=== PATIENT | female | born 1950 | race African-American/Black ===

== ENCOUNTER 2017-01-24 00:22 | Emergency (ER) | payer MEDICARE, OTHER ==
--- NOTE | 2017-01-24 02:15 | ER Document Report ---
ED General - General Chief Complaint: Bloody Stools Stated Complaint: BLOOD IN STOOL Time Seen by Provider: 01/24/17 01:05 Notes: Patient is a 66-year-old female who presents with complaint of some blood from the rectum. No fevers. She said that yesterday she had a 6 hour period of abdominal pain with cramping in her abdomen. She said she also felt hot all over when this occurred. Since then she has had no further abdominal pain. She says she has had a few episodes of mucousy type blood per the rectum. She says she does have history of some hemorrhoids but they are very mild and usually does not cause any bleeding or discomfort. She denies any discomfort in the rectum itself. She denies any vomiting. The only blood thinning medication she takes is aspirin. She has no other complaints at this time. Does have history of diverticulosis and diverticulitis. She had a colonoscopy 2 years ago and there were no abnormal findings other than diverticulosis. TRAVEL OUTSIDE OF THE [place] IN LAST 30 DAYS: No Past Medical History - Social History Smoking Status: Never Smoker Chew tobacco use (# tins/day): No Frequency of alcohol use: None Drug Abuse: None Family History: Reviewed & Not Pertinent Patient has suicidal ideation: No Patient has homicidal ideation: No Renal/ Medical History: Denies: Hx Peritoneal Dialysis Review of Systems - Review of Systems Notes: My Normal Review Basic REVIEW OF SYSTEMS: CONSTITUTIONAL : Denies fever, chills, or sweats. Denies recent illness. RESPIRATORY: Denies cough, cold, or chest congestion. Denies shortness of breath, difficulty breathing, or wheezing. GASTROINTESTINAL: Had episode of abdominal pain yesterday but currently has no pain. No vomiting. Some bloody mucus coming from rectum. MUSCULOSKELETAL: Denies neck or back pain or joint pain or swelling. SKIN: Denies rash or skin lesions. NEUROLOGICAL: Denies altered mental status or loss of consciousness. Denies headache. Denies weakness or paralysis or loss of use of either side. Denies problems with gait or speech. Denies sensory or motor loss. ALL OTHER SYSTEMS REVIEWED AND NEGATIVE. Physical Exam - Vital signs Vitals: Temp Pulse Resp BP Pulse Ox 97.7 F 81 18 156/88 H 96 01/24/17 00:31 01/24/17 00:31 01/24/17 00:31 01/24/17 00:31 01/24/17 00:31 - Notes Notes: General Appearance: Well nourished, alert, cooperative, no acute distress, no obvious discomfort. Well-appearing. Vitals: reviewed, See vital signs table. Head: no swelling or tenderness to the head Eyes: PERRL, EOMI, Conjuctiva clear Mouth: No decreasd moisture Neck: Supple, no neck tenderness Lungs: No wheezing, No rales, No rhonci, No accessory muscle use, good air exchange bilaterally. Heart: Normal rate, Regular rythm, No murmur, no rub Abdomen: Normal BS, soft, No rigidity, No reproducible abdominal tenderness to palpation, No guarding, no rebound, Extremities: strength 5/5 in all extremities, good pulses in all extremities, no swelling or tenderness in the extremities, no edema. Skin: warm, dry, appropriate color, no rash Neuro: speech clear, oriented x 3, normal affect, responds appropriately to questions. Course - Re-evaluation Re-evalutation: 01/24/17 02:15 I reevaluated the patient. She still denies any abdominal pain. Blood is being sent to the lab at this time. Still looks well and is vitally stable. 01/24/17 04:39 Patient is feeling much improved. She looks well. She has not had any further bleeding from the rectum. She says she feels as if that has slowed and stopped. She has not had any recurrence of pain. Laboratory evaluation is unremarkable. Patient is visiting from out of town and does have history of diverticulitis. Therefore did obtain a CT scan being that she did have significant pain earlier today when the bleeding started. There is no evidence of inflammation around the bowel. No evidence of colitis. I suspect patient probably had a brief diverticular bleed which is since stopped. Patient's vital signs are good and her blood work is normal with no anemia. I feel she is safe to discharge home. I talked her about watching her diet since avoiding nuts and seeds and hard foods. I explained to how these can irritate diverticulum. I encouraged her return to ER immediately if she has fevers, vomiting, recurrent abdominal pain, or recurrent bleeding. Patient agrees with plan will be discharged home. Dictation of this chart was performed using voice recognition software; therefore, there may be some unintended grammatical errors. - Vital Signs Vital signs: Temp Pulse Resp BP Pulse Ox 97.7 F 81 19 154/79 H 98 01/24/17 00:31 01/24/17 00:31 01/24/17 04:12 01/24/17 04:12 01/24/17 04:12 - Laboratory Result Diagrams: 01/24/17 02:25 01/24/17 02:43 Laboratory results interpreted by me: 01/24/17 02:43 Est GFR (Non-Af Amer) 58 L Glucose 114 H Discharge - Discharge Clinical Impression: Rectal bleeding Condition: Good Disposition: HOME, SELF-CARE Additional Instructions: As discussed with you I expect that you most likely had some bleeding from your diverticulum in your bowel. I suspect this is since stopped being that you are not having further bleeding coming from the rectum, your vital signs are normal , and your blood counts remain normal. CT scan did not show any infection or colitis. You do not need antibiotics at this time. Please avoid hard foods such as nuts or seeds. Please return to the ER if you have recurrent active bleeding from her rectum, recurrent pain, or fevers. Please follow-up with your doctor in 1 week for reevaluation.
[2017-01-24 02:41] LABS: ABSOLUTE EOSINOPHILS # (AUTO) 0.1 10^3/uL (0.0-0.6); ABSOLUTE LYMPHOCYTES (AUTO) 1.8 10^3/uL (0.5-4.7); ABSOLUTE MONOCYTES (AUTO) 0.4 10^3/uL (0.1-1.4); ABSOLUTE NEUT (AUTO) 2.6 10^3/uL (1.7-8.2); BASOPHILS % (AUTO) 0.3 % (0-2); EOSINOPHILS % (AUTO) 1.7 % (0-6); HEMATOCRIT 40.9 % (36.0-47.0); HEMOGLOBIN 13.8 g/dL (12.0-15.5); HGB HCT DIFFERENCE 0.5; LYMPHOCYTES % (AUTO) 36.6 % (13-45); MEAN CORPUSCULAR HEMOGLOBIN 31.5 pg (27.0-33.4); MEAN CORPUSCULAR HGB CONC 33.7 g/dL (32.0-36.0); MEAN CORPUSCULAR VOLUME 94 fl (80-97); MONOCYTES % (AUTO) 8.8 % (3-13); RED BLOOD COUNT 4.37 10^6/uL (3.72-5.28); SEGMENTED NEUTROPHILS % (AUTO) 52.6 % (42-78)
[2017-01-24 02:54] LABS: ALANINE AMINOTRANSFERASE 30 U/L (9-52); ALBUMIN 4.4 g/dL (3.5-5.0); ALKALINE PHOSPHATASE 108 U/L (38-126); ANION GAP 11 (5-19); ASPARTATE AMINO TRANSFERASE 32 U/L (14-36); BILIRUBIN,DIRECT 0.3 mg/dL (0.0-0.4); BILIRUBIN,TOTAL 0.6 mg/dL (0.2-1.3); BLOOD UREA NITROGEN 14 mg/dL (7-20); CALCIUM 9.7 mg/dL (8.4-10.2); CARBON DIOXIDE 30 mmol/L (22-30); CHLORIDE 103 mmol/L (98-107); CREATININE RESULT 0.96 mg/dL (0.52-1.25); GLUCOSE 114 mg/dL (75-110); LIPASE 80.6 U/L (23-300); POTASSIUM 4.1 mmol/L (3.6-5.0); TOTAL PROTEIN 8.1 g/dL (6.3-8.2)
[2017-01-24] MEDS ORDERED: NORMAL SALINE 500 ML IV ONE (03:16)
--- NOTE | 2017-01-24 04:19 | RADIOLOGY REPORT (SQ) ---
EXAM DESCRIPTION: CT ABDOMEN AND PELVIS WITH CONTRAST CLINICAL HISTORY: rectal bleeding. history of diverticulitis. Right lower and left lower quadrant pain. COMPARISON: None Available. TECHNIQUE: CT of the abdomen and pelvis are performed during IV bolus administration of 92 mL of [id number]. Portal venous and delayed phase imaging obtained. DLP: 1623 mGycm FINDINGS: Abdomen: The liver has normal size and density. No intrahepatic mass or biliary dilatation. No calcified gallstones. The spleen, pancreas, and adrenal glands are unremarkable. The kidneys have normal size and contour without evidence of solid mass or hydronephrosis. Small left renal cyst. Aortoiliac atherosclerosis. IVC is unremarkable. The portal vein patent. The proximal visceral and renal arteries are patent. No free intraperitoneal air. The stomach and duodenum have normal course. Pelvis: Calcified uterine fibroids. Urinary bladder is unremarkable. No free pelvic fluid or lymphadenopathy. No dilated loops of large or small bowel. Scattered diverticula of the colon. Normal appendix. The visualized lung bases demonstrate minimal dependent atelectasis.. No destructive bone lesions identified. Degenerative disc disease and endplate spondylosis of the lumbar spine. IMPRESSION: 1. No acute inflammatory or obstructive abnormality identified. 2. Diverticulosis without evidence of diverticulitis. This exam was performed according to our departmental dose-optimization program, which includes automated exposure control, adjustment of the mA and/or kV according to patient size and/or use of iterative reconstruction technique.
[2017-01-24 05:02] VITALS: BP 133/69
== END 2017-01-24 04:48 | disposition home or self-care (01) ==
LOC: ER 00:22
DX: K62.5 Hemorrhage of anus and rectum (principal); Z79.82 Long term (current) use of aspirin; Z87.19 Personal history of other diseases of the digestive system
CPT/HCPCS: 99284; 96360; 86900; 86901; 36415; 86850; 83690; 85025; 80053; 74177; J7040